=== PATIENT | female | born 1985 | race Caucasian/White ===

== ENCOUNTER 2017-10-03 10:00 | Emergency (ER) | payer BC ==
[~2017-10-03] VITALS: Ht 162.6 cm; Wt 59.0 kg
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
--- NOTE | 2017-10-03 10:44 | NUR ---
PATIENT TRANSPORTED FOR CT VIA GURNEY. PATIENT REMAINS IN STABLE CONDITION AT THIS TIME.
--- NOTE | 2017-10-03 11:24 | NUR ---
C-spine cleared by ER . Collar removed. Patient able to move all extremities before and after removal.
--- NOTE | 2017-10-03 11:26 | NUR ---
PT. VERBALIZED UNDERSTANDING OF AFTERCARE INSTRUCTIONS.Patient discharged to home in stable condition. Written and verbal after care instructions given. Patient verbalizes understanding of instruction.
[2017-10-03 11:28] VITALS: BP 125/78
== END 2017-10-03 11:28 | disposition home or self-care (01) ==
LOC: ER 10:01
DX: S13.4XXA Sprain of ligaments of cervical spine, initial encounter (principal); R51 Headache; Z88.5 Allergy status to narcotic agent; V43.52XA Car driver injured in collision with other type car in traffic accident, initial encounter; Y93.89 Activity, other specified; Y92.89 Other specified places as the place of occurrence of the external cause; Y99.8 Other external cause status
CPT/HCPCS: 70450; 72125; 99284; A4606; L0172; Z7610